=== PATIENT | female | born 1990 | race Two or more races ===

== ENCOUNTER 2017-09-08 02:46 | Inpatient (IN) | payer OTHER ==
[2017-09-08] MEDS ORDERED: OXYTOCIN 20 UNIT in LR 1,000 ML IV PRN (02:58)
[2017-09-08] MEDS ORDERED: OLIVE OIL 118 ML BTL MISC PRN (02:58)
[2017-09-08] MEDS ORDERED: TERBUTALINE SULFATE 1 MG/ML VIAL IV PRN (02:58)
[2017-09-08] MEDS ORDERED: EPSOM SALT 454 GM TP PRN (02:58)
[2017-09-08] MEDS ORDERED: LR 1,000 ML IV PRN (02:58)
[2017-09-08] MEDS ORDERED: AMMONIA AROMATIC 1 EACH AMP IH ONE (03:05)
[2017-09-08] MEDS ORDERED: OLIVE OIL 118 ML BTL ONE (03:05)
[2017-09-08] MEDS ORDERED: MISOPROSTOL 200 MCG TAB ONE (03:05)
[2017-09-08] MEDS ORDERED: TERBUTALINE SULFATE 1 MG/ML VIAL ONE (03:05)
[2017-09-08] MEDS ORDERED: LIDOCAINE 1% 300 MG/30 ML SDV ONE (03:05)
[2017-09-08] MEDS ORDERED: OXYTOCIN 10 UNIT/ML VIAL ONE (03:05)
[2017-09-08] MEDS ORDERED: HYDROCORTISONE 0.5% CREAM TP PRN (03:33)
[2017-09-08] MEDS ORDERED: HYDROCODONE/APAP 5/325 TAB PO PRN (03:33)
[2017-09-08] MEDS ORDERED: ACETAMINOPHEN 325 MG TAB PO PRN (03:33)
[2017-09-08] MEDS ORDERED: SIMETHICONE 80 MG TAB CHEW PO PRN (03:33)
[2017-09-08] MEDS ORDERED: DOCUSATE SODIUM 100 MG CAP PO PRN (03:33)
--- NOTE | 2017-09-08 03:40 | OBDEL ---
Info Type: Vaginal Presentation at Delivery: Vertex L&D Analgesia/Anesthesia Type: None GBS+: No - Hospital Course Intrapartum: 09/08/17 03:36 arrived to labor and delivery at 8 cm. rapid progress to complete. AROM. pushed with one contraction. delivered over and intact perineum. Indications for Delivery: Spontaneous Labor Vaginal Delivery - Delivery Provider Delivery Physician/CNM: Diana Carter - Labor and Delivery Onset of Contractions Date: 09/07/17 Onset of Contractions Time: 22:00 Onset of Contractions Type: Spontaneous Rupture of Membranes Date: 09/08/17 Rupture of Membranes Time: 03:06 Rupture of Membranes Type: Artificial Amniotic Fluid Color: Clear Dilation Complete Date: 09/08/17 Dilation Complete Time: 03:05 Placenta Delivery Date: 09/08/17 Placenta Delivery Time: 03:14 Total Hours of Labor: 5 Non-surgical Procedures: Amniotomy Vaginal Sponge Count Correct: Yes Vaginal Needle Count Correct: Yes Vaginal Sweep Performed: Yes EBL: 200 - Medications Labor Augmentation/Induction Methods Used: None Data TONYA: 09/09/17 Gestational Age: 39 week(s) and 6 day(s) Kunz Delivery Date: 09/09/17 Delivery Time: 03:10 Sex of : Female Score (1 Min): 8 Score (5 Min): 9 ICD10 Worksheet Patient Problems: Problems Problem Status Onset Delivery normal Acute
--- NOTE | 2017-09-08 03:50 | OBPROG ---
Labor Progress Note Assessment/Plan: Assessment: Plan: Subjective/Intrapartum Course: 09/08/17 03:36 arrived to labor and delivery at 8 cm. rapid progress to complete. AROM. pushed with one contraction. delivered over and intact perineum. - SVE Amniotic Fluid Color: Clear Dilation Complete Date: 09/08/17 Dilation Complete Time: 03:05 - Procedures Non-surgical Procedures: Amniotomy - AP Antepartum Course: 09/08/17 03:46 patient had irregular cycles. late care. dated by 18 week ultrasound. marginal cord insertion. normal growth ultrasound in third trimester. GBS negative. ICD10 Worksheet Patient Problems: Problems Problem Status Onset Delivery normal Acute
[2017-09-08] MEDS: IBUPROFEN 600 MG TAB PO PRN ×3 (04:33→16:11)
[2017-09-08 04:34] LABS: PLATELET COUNT 263 10^3/uL (150-400)
--- NOTE | 2017-09-08 05:06 | GHP ---
[f rep st] PREOP HISTORY AND PHYSICAL DATE OF ADMISSION: 09/08/2017 ADMISSION DIAGNOSES: 1. Intrauterine at 39-6/7 weeks gestation. 2. Active labor. HISTORY OF PRESENT ILLNESS: Patient is a 26-year-old, 3, para 2-0-0-2. Her estimated date o f confinement is 09/09/2017 dated by 2nd trimester ultrasound at 18 weeks gestation and a history of irregular cycles. She is 39-6/7 weeks gestation dated by that 2nd trimester ultrasound. Patient beg an having contractions increasing in frequency and intensity just before midnight on September 07. Beatris johnson arrived to Labor and Delivery 8 cm dilated, and rapidly progressed to complete and delivering. Savanah borden had no loss of fluid prior to arrival. She did have small amount of vaginal bleeding. She had good movement. Denied any headache or changes in vision. PAST MEDICAL HISTORY: Significant for history of irregular cycles. MEDICATIONS: vitamins. PAST SURGICAL HISTORY: None. ALLERGIES: No known drug allergies. SOCIAL HISTORY: Patient works at [employer] in [employer]. She is engaged to her fiance. She denies t obacco, alcohol, or drug use. FAMILY HISTORY: Noncontributory. OBSTETRIC/GYNECOLOGIC HISTORY: Menarche age 16. Periods are irregular, often at every 3 months. Beatris johnson is a 3, para 2-0-0-2. In 2007, she had a spontaneous vaginal delivery of a 6 pound 2 ounce , male at 39 weeks gestation. She was induced secondary to questionable history of intrauteri ne growth restriction. In 2007, she had a 6 pound 5 ounce, female delivered at 39 weeks. She also was induced secondary to possible intrauterine growth restriction. Current has been uncomplicated. She had late care initiated at 18 weeks gestation. Marginal cord insertion was noted, so she had a growth ultrasound in 3rd trimester which was normal. Patient denies any hist ory of abnormal Pap smears or sexually transmitted diseases. REVIEW OF SYSTEMS: 10-point review of systems is negative with the exception of the above-mentioned pertinent positives. PHYSICAL EXAMINATION: VITAL SIGNS: Stable. GENERAL APPEARANCE: Alert and oriented x3 and uncomfor table. PSYCHIATRIC: She had appropriate affect. HEART: Rate is regular, regular. LUNGS: Clear t o auscultation bilaterally. NECK: Mobile and supple. MUSCULOSKELETAL: Grossly intact. NEUROLOGIC AL: Grossly intact. ABDOMEN: Gravid, nondistended, nontender. EXTREMITIES: Reveal no calf tender ness or edema. CERVICAL: On arrival, she was 8 cm dilated and rapidly progressed to complete, and m embranes were artificially ruptured. Clear fluid was noted. Infant is in the vertex presentation. heart tracing was limited, but reactive, and she was having regular contractions. LABORATORIES: Blood type O positive, antibody screen negative, rubella low immune, GBS nega tive, HBsAg negative. ASSESSMENT AND PLAN: 26-year-old, 3, para 2-0-0-2 who was 39-6/7 weeks gestation who arrived in active labor, and had a spontaneous vaginal delivery. She received intramuscular Pitocin and per rectum Cytotec due to not IV access. /[id number]/MODL
[2017-09-08] MEDS ORDERED: MEASLES,MUMPS&RUBELLA VACC/PF 0.5 ML VIAL SC ONE (08:00)
[2017-09-09 08:20] VITALS: BP 108/68; PULSE 82; RESP 19; TEMP 97.8; O2SAT 95
--- NOTE | 2017-09-09 10:58 | OBPP ---
Progress Note Assessment/Plan: Assessment: PPD 1 1/2 s/p Plan: D/C home 09/09/17 10:55 Subjective/ Course: 09/09/17 10:57 Pt doing well. Bld has lessened - mod cramps. urinating fine. baby is latching well. bottom not too sore. Not even needing ibu today. Objective: 09/08/17 04:20 Patient ABO/Rh O POSITIVE 09/08/17 04:20 Temp Pulse Resp BP Pulse Ox 36.6 C 82 19 108/68 95 09/09/17 08:00 09/09/17 08:00 09/09/17 08:00 09/09/17 08:00 09/09/17 08:00 Uterine Position/Fundal Height: Umbilicus -1 Uterine Tone: Firm Physical Exam - Physical Exam Abdomen: non-tender, soft, other (FF at umb -1, normal lochia) Extremities: non-tender, pedal edema Skin: normal color, warm/dry Neuro/Psych: alert, normal mood/affect
== END 2017-09-09 12:00 | disposition home or self-care (01) | DRG 775 ==
LOC: FLD 02:46 → OBSVTOIN 02:46 → FOB 05:50
PROVIDERS: ADMIT Obstetrics & Gynecology; ATTEND Obstetrics & Gynecology
PROC: 10E0XZZ Delivery of Products of Conception, External Approach (ICD-10-PCS; principal; 2017-09-08)
DX: O80 Encounter for full-term uncomplicated delivery (principal); Z3A.39 39 weeks gestation of pregnancy; Z37.0 Single live birth
CPT/HCPCS: J3105